=== PATIENT | male | born 1950 | race Caucasian/White ===

== ENCOUNTER 2023-09-07 12:14 | Emergency (ER) | payer MEDICARE ==
[2023-09-07] MEDS ORDERED: Boostrix 0.5 ML (Tdap) VIAL (>/=7 yrs of age) ONE (12:46)
[2023-09-07] MEDS ORDERED: Lidocaine 1% PF 5 ML VIAL ONE (12:55)
== END 2023-09-07 13:37 | disposition home or self-care (01) ==
LOC: BURERS 12:14
DX: S61.214A Laceration without foreign body of right ring finger without damage to nail, initial encounter (principal); I10 Essential (primary) hypertension; Z23 Encounter for immunization; W26.8XXA Contact with other sharp object(s), not elsewhere classified, initial encounter
CPT/HCPCS: 12001; 90471; 90715